=== PATIENT | male | born 1970 | race Caucasian/White ===

== ENCOUNTER 2018-05-04 18:58 | Emergency (ER) | payer OTHER, SELFPAY ==
--- NOTE | 2018-05-04 19:01 | DI.RAD.S_ITS ---
PROCEDURE: XR KNEE RT 3V INDICATIONS: knee injury TECHNIQUE: 3 views of the knee were acquired. COMPARISON: None. FINDINGS: Bones: There is a non-displaced fracture involving the medial tibial plateau and tibial eminence. No depression of the medial tibial plateau. No suspicious bony lesions. Soft tissues: Moderate knee joint effusion. No suspicious soft tissue calcifications. IMPRESSION: Non-displaced medial tibial plateau fracture. Dictated by: Marika Jordan M.D. on 05/04/2018 at 19:41 Approved by: Marika Jordan M.D. on 05/04/2018 at 19:43
[2018-05-04 19:09] VITALS: BP 149/95; PULSE 85; RESP 20; TEMP 36.8; O2SAT 100
--- NOTE | 2018-05-04 19:11 | ED.LOWEXIN ---
HPI - Extremity Injury (Lower) General Chief Complaint: Extremity Injury, Lower Stated Complaint: POSSIBLE BROKEN R LEG Time Seen by Provider: 05/04/18 19:01 Source: patient and family Mode of arrival: wheelchair Limitations: no limitations History of Present Illness HPI Narrative: Otherwise healthy 47-year-old male presents to the emergency department with his in the chief complaint of right knee injury suffered while trying to kick start an old 1940s [employer]. The kick lever gave way, when he was expecting significant resistance, this allowed all of his body wait to slam down on his knee. He has significant pain, swelling, and instability. He denies any other injury nor history of right knee injury. He denies numbness, tingling or weakness. He takes no blood thinners. He has been NPO since 1500 complaint: knee injury Onset (ago): minute(s) Related Data Allergies Allergy/AdvReac Type Severity Reaction Status Date / Time No Known Drug Allergies Allergy Verified 05/04/18 19:14 Review of Systems Review of Systems All systems reviewed & are unremarkable except as noted in HPI and below Constitutional Denies chills, Denies fever(s), Denies lethargy and Denies weakness Eyes Denies change in vision, Denies eye discharge, Denies irritation and Denies loss of vision ENT Ears, Nose, Mouth, and Throat: Denies change in voice, Denies neck pain and Denies sore throat Cardiovascular Denies chest pain, Denies irregular heart rhythm, Denies lightheadedness, Denies palpitations, Denies dyspnea, Denies dyspnea on exertion and Denies orthopnea Respiratory Denies cough, Denies dyspnea, Denies dyspnea on exertion and Denies wheezing Gastrointestinal Gastrointestinal: Denies abdominal pain, Denies change in bowel habits, Denies diarrhea, Denies nausea and Denies vomiting Genitourinary Denies hematuria, Denies flank pain, Denies urinary incontinence and Denies urinary urgency Musculoskeletal Reports joint swelling, Reports limited range of motion and Denies neck pain Integumentary/Breasts Denies pruritus, Denies erythema, Denies rash and Denies wounds Neurologic Denies confusion, Denies loss of vision and Denies weakness Psychiatric Denies anxiety, Denies confusion, Denies depression, Denies homicidal ideation and Denies suicidal ideation Endocrine Denies palpitations Hematologic/Lymphatic Denies easy bruising Allergic/Immunologic Denies wheezing PFSH Social History Smoking Status: Never smoker Exam Narrative Exam Narrative: GENERAL: This is a well-nourished, well-developed patient, in mild distress. HEAD: Atraumatic. Normocephalic. No temporal or scalp tenderness. EYES: Pupils equal round and reactive. Extraocular motions intact. No scleral icterus. No injection or drainage. ENT: Nose without bleeding, purulent drainage or septal hematoma. Throat without erythema, tonsillar hypertrophy or exudate. Uvula midline. Airway patent. NECK: Trachea midline. No JVD or lymphadenopathy. Supple, nontender, no meningeal signs. CARDIOVASCULAR: Regular rate and rhythm without murmurs, gallops, or rubs. RESPIRATORY: Clear to auscultation. Breath sounds equal bilaterally. No wheezes, rales, or rhonchi. GASTROINTESTINAL: Abdomen soft, non-tender, nondistended. No hepato-splenomegaly, or palpable masses. No guarding. EXTREMITIES: Pain along medial, lateral joint lines of R knee. Moderate effusion. Distal CMS intact. Closed and isolated injury BACK: Nontender without deformity or crepitance. No flank tenderness. NEURO: AOx3. SKIN: No rash or erythema. Initial Vital Signs Initial Vital Signs: Vital Signs Temperature 98.2 F 05/04/18 19:09 Pulse Rate 85 05/04/18 19:09 Respiratory Rate 20 05/04/18 19:09 Blood Pressure 149/95 H 05/04/18 19:09 Pulse Oximetry 100 05/04/18 19:09 Procedures Orthopedic Splinting/Casting Injury #1: Side: right Lower Extremity Immobilizer: knee immobilizer Additional Comments: Patient remains neurovascularly intact after application of splint Course Orders Ordered: ED Orders 05/04/18 19:01 XR knee RT 3V Stat 05/04/18 19:38 CT LE RT wo con Stat 05/04/18 22:26 Basic Metabolic Panel Stat Complete Blood Count AUTO DIFF Stat Hydromorphone HCl (Dilaudid) 1 mg SUBCUT Q4H PRN PRN Reason: Pain, Severe (7-10) Last Admin: 05/04/18 20:03 Dose: 1 mg Discontinued Medications Hydromorphone HCl (Dilaudid) 1 mg IV NOW ONE Stop: 05/04/18 22:09 Last Admin: 05/04/18 22:57 Dose: 0.75 mg Hydromorphone HCl (Dilaudid) 0.5 mg IV NOW ONE Stop: 05/05/18 00:55 Ondansetron HCl (Zofran) 4 mg IV NOW ONE Stop: 05/04/18 22:59 Last Admin: 05/04/18 22:58 Dose: 4 mg Reevaluation(s) Reevaluation #1: Patient was all set for discharge but there will not be a delay as 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 [facility] notified of new delay Consultations Consultation #1: Call to ortho equipment monitor phototypesetting, Dr. Vo whom has reviewed CT and xray and states the complexity of this fracture exceeds the capability of this facility. Called placed to [facility] [place]. Woods ([facility]) is happy to accept patient in transfer Vital Signs - 8 hr 05/04/18 19:09 05/04/18 20:36 05/04/18 22:49 Temperature 98.2 F Pulse Rate 85 73 48 L Respiratory Rate 20 16 15 Blood Pressure 149/95 H Blood Pressure [Right Arm] 120/60 94/55 L Pulse Oximetry 100 100 100 05/04/18 23:09 05/05/18 00:04 Temperature Pulse Rate 61 55 L Respiratory Rate 16 18 Blood Pressure Blood Pressure [Right Arm] 106/64 117/64 Pulse Oximetry 100 98 MDM - Extremity Injury (Lower) Lab Data Result diagrams: 05/04/18 22:26 05/04/18 22:26 Lab Results 05/04/18 05/04/18 Range/Units 22:26 22:26 WBC 13.0 H (4.5-11.0) X10^3/uL RBC 4.90 (4.5-5.9) X10^6/uL Hgb 15.1 (13.5-17.5) g/dL Hct 44.2 (41-53) % MCV 90.2 (80-100) fL MCH 30.8 (26-34) PG MCHC 34.1 (30-36) % RDW 13.2 (11.6-14.8) % Plt Count 315 (150-400) X10^3/uL Neut % (Auto) 76.2 H (50-75) % Lymph % (Auto) 15.1 L (25-40) % Gates % (Auto) 6.4 (3-14) % Eos % (Auto) 1.4 L (2-4) % Baso % (Auto) 0.9 (0-2) % Neut # (Auto) 9900 H (9485-3728) /uL Sodium 139 (137-145) mmol/L Potassium 4.5 (3.4-5.1) mmol/L Chloride 106 (98-107) mmol/L Carbon Dioxide 22 (22-32) mmol/L BUN 15 (9-20) mg/dL Creatinine 0.70 (0.66-1.25) mg/dL Estimated GFR > 60.0 (>60) mL/min BUN/Creatinine Ratio 21.4 (6-22) Glucose 109 H (70-100) mg/dL Calcium 9.2 (8.4-10.2) mg/dL Imaging Data Knee Xray: My impression: Minimal displaced medial tibial plateau fracture Radiologist's impression: PROCEDURE: XR KNEE RT 3V INDICATIONS: knee injury TECHNIQUE: 3 views of the knee were acquired. COMPARISON: None. FINDINGS: Bones: There is a non-displaced fracture involving the medial tibial plateau and tibial eminence. No depression of the medial tibial plateau. No suspicious bony lesions. Soft tissues: Moderate knee joint effusion. No suspicious soft tissue calcifications. IMPRESSION: Non-displaced medial tibial plateau fracture. Dictated by: Marika Jordan M.D. on 05/04/2018 at 19:41 Approved by: Marika Jordan M.D. on 05/04/2018 at 19:[address]: Radiologist's impression: PROCEDURE: CT LE RT WO CON INDICATIONS: Right knee, tibial plateau fracture TECHNIQUE: Noncontrast 1-1.5 mm axial sections acquired from the mid-patella to the proximal tibia, with coronal and sagittal reformats. COMPARISON: [facility], , XR KNEE RT 3V, 05/04/2018, 18:40. FINDINGS: Image quality: Excellent. Bones: There is comminuted medial tibial plateau fracture with involvement of the tibial spine with mild displacement (Schatzker IV). There is minimal medial tibial plateau depression. A comminuted fibular head fracture is also noted with mild displacement. Soft tissues: There is moderate effusion with a fat-fluid level consistent with hemarthrosis. IMPRESSION: 1. Comminuted medial tibial plateau fracture with involvement of tibial spine. There is mild displacement and minimal central depression. 2. Comminuted fracture of the fibular head. 3. Hemarthrosis. Dictated by: Marika Jordan M.D. on 05/04/2018 at 20:54 Approved by: Marika Jordan M.D. on 05/04/2018 at 21:02 Discharge Plan Departure Patient Disposition: [facility] Clinical Impression: Fracture of tibial plateau
--- NOTE | 2018-05-04 19:38 | DI.CT.S_ITS ---
PROCEDURE: CT LE RT WO CON INDICATIONS: Right knee, tibial plateau fracture TECHNIQUE: Noncontrast 1-1.5 mm axial sections acquired from the mid-patella to the proximal tibia, with coronal and sagittal reformats. COMPARISON: [facility], CR, XR KNEE RT 3V, 05/04/2018, 18:40. FINDINGS: Image quality: Excellent. Bones: There is comminuted medial tibial plateau fracture with involvement of the tibial spine with mild displacement (Schatzker IV). There is minimal medial tibial plateau depression. A comminuted fibular head fracture is also noted with mild displacement. Soft tissues: There is moderate effusion with a fat-fluid level consistent with hemarthrosis. IMPRESSION: 1. Comminuted medial tibial plateau fracture with involvement of tibial spine. There is mild displacement and minimal central depression. 2. Comminuted fracture of the fibular head. 3. Hemarthrosis. Dictated by: Marika Jordan M.D. on 05/04/2018 at 20:54 Approved by: Marika Jordan M.D. on 05/04/2018 at 21:02
[2018-05-04] MEDS: HYDROMORPHONE 2 MG INJ 1 MG SUBCUT (20:03)
--- NOTE | 2018-05-04 20:03 | ED_ITS ---
HPI - Extremity Injury (Lower) General Chief Complaint: Extremity Injury, Lower Stated Complaint: POSSIBLE BROKEN R LEG Time Seen by Provider: 05/04/18 19:01 Source: patient and family Mode of arrival: wheelchair Limitations: no limitations History of Present Illness HPI Narrative: Otherwise healthy 47-year-old male presents to the emergency department with his in the chief complaint of right knee injury suffered while trying to kick start an old 1940s [employer]. The kick lever gave way , when he was expecting significant resistance, this allowed all of his body wait to slam down on his knee. He has significant pain, swelling, and instability. He denies any other injury nor history of right knee injury. He denies numbness, tingling or weakness. He takes no blood thinners. He has been NPO since 1500 complaint: knee injury Onset (ago): minute(s) Related Data Allergies Allergy/AdvReac Type Severity Reaction Status Date / Time No Known Drug Allergies Allergy Verified 05/04/18 19:14 Review of Systems Review of Systems All systems reviewed & are unremarkable except as noted in HPI and below Constitutional Denies chills, Denies fever(s), Denies lethargy and Denies weakness Eyes Denies change in vision, Denies eye discharge, Denies irritation and Denies loss of vision ENT Ears, Nose, Mouth, and Throat: Denies change in voice, Denies neck pain and Denies sore throat Cardiovascular Denies chest pain, Denies irregular heart rhythm, Denies lightheadedness, Denies palpitations, Denies dyspnea, Denies dyspnea on exertion and Denies orthopnea Respiratory Denies cough, Denies dyspnea, Denies dyspnea on exertion and Denies wheezing Gastrointestinal Gastrointestinal: Denies abdominal pain, Denies change in bowel habits, Denies diarrhea, Denies nausea and Denies vomiting Genitourinary Denies hematuria, Denies flank pain, Denies urinary incontinence and Denies urinary urgency Musculoskeletal Reports joint swelling, Reports limited range of motion and Denies neck pain Integumentary/Breasts Denies pruritus, Denies erythema, Denies rash and Denies wounds Neurologic Denies confusion, Denies loss of vision and Denies weakness Psychiatric Denies anxiety, Denies confusion, Denies depression, Denies homicidal ideation and Denies suicidal ideation Endocrine Denies palpitations Hematologic/Lymphatic Denies easy bruising Allergic/Immunologic Denies wheezing PFSH Social History Smoking Status: Never smoker Exam Narrative Exam Narrative: GENERAL: This is a well-nourished, well-developed patient, in mild distress. HEAD: Atraumatic. Normocephalic. No temporal or scalp tenderness. EYES: Pupils equal round and reactive. Extraocular motions intact. No scleral icterus. No injection or drainage. ENT: Nose without bleeding, purulent drainage or septal hematoma. Throat without erythema, tonsillar hypertrophy or exudate. Uvula midline. Airway patent. NECK: Trachea midline. No JVD or lymphadenopathy. Supple, nontender, no meningeal signs. CARDIOVASCULAR: Regular rate and rhythm without murmurs, gallops, or rubs. RESPIRATORY: Clear to auscultation. Breath sounds equal bilaterally. No wheezes , rales, or rhonchi. GASTROINTESTINAL: Abdomen soft, non-tender, nondistended. No hepato-splenomegaly , or palpable masses. No guarding. EXTREMITIES: Pain along medial, lateral joint lines of R knee. Moderate effusion. Distal CMS intact. Closed and isolated injury BACK: Nontender without deformity or crepitance. No flank tenderness. NEURO: AOx3. SKIN: No rash or erythema. Initial Vital Signs Initial Vital Signs: Vital Signs Temperature 98.2 F 05/04/18 19:09 Pulse Rate 85 05/04/18 19:09 Respiratory Rate 20 05/04/18 19:09 Blood Pressure 149/95 H 05/04/18 19:09 Pulse Oximetry 100 05/04/18 19:09 Procedures Orthopedic Splinting/Casting Injury #1: Side: right Lower Extremity Immobilizer: knee immobilizer Additional Comments: Patient remains neurovascularly intact after application of splint Course Orders Ordered: ED Orders 05/04/18 19:01 XR knee RT 3V Stat 05/04/18 19:38 CT LE RT wo con Stat 05/04/18 22:26 Basic Metabolic Panel Stat Complete Blood Count AUTO DIFF Stat Hydromorphone HCl (Dilaudid) 1 mg SUBCUT Q4H PRN PRN Reason: Pain, Severe (7-10) Last Admin: 05/04/18 20:03 Dose: 1 mg Discontinued Medications Hydromorphone HCl (Dilaudid) 1 mg IV NOW ONE Stop: 05/04/18 22:09 Last Admin: 05/04/18 22:57 Dose: 0.75 mg Hydromorphone HCl (Dilaudid) 0.5 mg IV NOW ONE Stop: 05/05/18 00:55 Ondansetron HCl (Zofran) 4 mg IV NOW ONE Stop: 05/04/18 22:59 Last Admin: 05/04/18 22:58 Dose: 4 mg Reevaluation(s) Reevaluation #1: Patient was all set for discharge but there will not be a delay as 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 [facility] [place] [facility] notified of new delay Consultations Consultation #1: Call to ortho professional athlete, Dr. Vo whom has reviewed CT and xray and states the complexity of this fracture exceeds the capability of this facility. Called placed to [facility] [place] [place] Dr. Woods ([facility]) is happy to accept patient in transfer Vital Signs - 8 hr 05/04/18 19:09 05/04/18 20:36 05/04/18 22:49 Temperature 98.2 F Pulse Rate 85 73 48 L Respiratory Rate 20 16 15 Blood Pressure 149/95 H Blood Pressure [Right Arm] 120/60 94/55 L Pulse Oximetry 100 100 100 05/04/18 23:09 05/05/18 00:04 Temperature Pulse Rate 61 55 L Respiratory Rate 16 18 Blood Pressure Blood Pressure [Right Arm] 106/64 117/64 Pulse Oximetry 100 98 MDM - Extremity Injury (Lower) Lab Data Result diagrams: 05/04/18 22:26 05/04/18 22:26 Lab Results 05/04/18 05/04/18 Range/Units 22:26 22:26 WBC 13.0 H (4.5-11.0) X10^3/uL RBC 4.90 (4.5-5.9) X10^6/uL Hgb 15.1 (13.5-17.5) g/dL Hct 44.2 (41-53) % MCV 90.2 (80-100) fL MCH 30.8 (26-34) PG MCHC 34.1 (30-36) % RDW 13.2 (11.6-14.8) % Plt Count 315 (150-400) X10^3/uL Neut % (Auto) 76.2 H (50-75) % Lymph % (Auto) 15.1 L (25-40) % Cotton % (Auto) 6.4 (3-14) % Eos % (Auto) 1.4 L (2-4) % Baso % (Auto) 0.9 (0-2) % Neut # (Auto) 9900 H (0641-0924) /uL Sodium 139 (137-145) mmol/L Potassium 4.5 (3.4-5.1) mmol/L Chloride 106 (98-107) mmol/L Carbon Dioxide 22 (22-32) mmol/L BUN 15 (9-20) mg/dL Creatinine 0.70 (0.66-1.25) mg/dL Estimated GFR > 60.0 (>60) mL/min BUN/Creatinine Ratio 21.4 (6-22) Glucose 109 H (70-100) mg/dL Calcium 9.2 (8.4-10.2) mg/dL Imaging Data Knee Xray: My impression: Minimal displaced medial tibial plateau fracture Radiologist's impression: PROCEDURE: XR KNEE RT 3V INDICATIONS: knee injury TECHNIQUE: 3 views of the knee were acquired. COMPARISON: None. FINDINGS: Bones: There is a non-displaced fracture involving the medial tibial plateau and tibial eminence. No depression of the medial tibial plateau. No suspicious bony lesions. Soft tissues: Moderate knee joint effusion. No suspicious soft tissue calcifications. IMPRESSION: Non-displaced medial tibial plateau fracture. Dictated by: Marika Jordan M.D. on 05/04/2018 at 19:41 Approved by: Marika Jordan M.D. on 05/04/2018 at 19:[address]: Radiologist's impression: PROCEDURE: CT LE RT WO CON INDICATIONS: Right knee, tibial plateau fracture TECHNIQUE: Noncontrast 1-1.5 mm axial sections acquired from the mid-patella to the proximal tibia, with coronal and sagittal reformats. COMPARISON: [facility], , XR KNEE RT 3V, 05/04/2018, 18:40. FINDINGS: Image quality: Excellent. Bones: There is comminuted medial tibial plateau fracture with involvement of the tibial spine with mild displacement (Schatzker IV). There is minimal medial tibial plateau depression. A comminuted fibular head fracture is also noted with mild displacement. Soft tissues: There is moderate effusion with a fat-fluid level consistent with hemarthrosis. IMPRESSION: 1. Comminuted medial tibial plateau fracture with involvement of tibial spine. There is mild displacement and minimal central depression. 2. Comminuted fracture of the fibular head. 3. Hemarthrosis. Dictated by: Marika Jordan M.D. on 05/04/2018 at 20:54 Approved by: Marika Jordan M.D. on 05/04/2018 at 21:02 Discharge Plan Departure Patient Disposition: [facility] Clinical Impression: Fracture of tibial plateau
[2018-05-04 20:36] VITALS: BP 120/60; PULSE 73; RESP 16; O2SAT 100
[2018-05-04 22:41] LABS: Add Manual Diff / Slide Review NO; Basophils Percent Auto 0.9 % (0-2); Eosinophils Percent Auto 1.4 % (2-4); Hematocrit 44.2 % (41-53); Hemoglobin 15.1 g/dL (13.5-17.5); Lymphocytes Percent Auto 15.1 % (25-40); Mean Corpuscular HGB Conc 34.1 % (30-36); Mean Corpuscular Hemoglobin 30.8 PG (26-34); Mean Corpuscular Volume 90.2 fL (80-100); Monocytes Percent Auto 6.4 % (3-14); Neutrophils Absolute Auto 9900 /uL (3000-5900); Neutrophils Percent Auto 76.2 % (50-75); Platelet Count 315 X10^3/uL (150-400); Red Cell Distribution Width 13.2 % (11.6-14.8)
[2018-05-04 22:47] LABS: BUN Creatinine Ratio 21.4 (6-22); Blood Urea Nitrogen 15 mg/dL (9-20); Calcium 9.2 mg/dL (8.4-10.2); Carbon Dioxide 22 mmol/L (22-32); Chloride 106 mmol/L (98-107); Estimated Glomerular Filt Rate > 60.0 mL/min (>60); Glucose 109 mg/dL (70-100); HEMOLYSIS < 15 (0-50); Potassium 4.5 mmol/L (3.4-5.1); Sodium 139 mmol/L (137-145)
[2018-05-04 22:49] VITALS: BP 94/55; PULSE 48; RESP 15; O2SAT 100
[2018-05-04] MEDS: HYDROMORPHONE 1 MG INJ IV (22:57)
[2018-05-04] MEDS: ONDANSETRON 4 MG/2 ML INJ IV (22:58)
[2018-05-04 23:09] VITALS: BP 106/64; PULSE 61; RESP 16; O2SAT 100
[2018-05-05 00:04] VITALS: BP 117/64; PULSE 55; RESP 18; O2SAT 98
[2018-05-05] MEDS: HYDROMORPHONE 1 MG INJ 0.5 MG IV (01:00)
== END 2018-05-05 01:22 | disposition short-term general hospital (02) ==
PROVIDERS: Emergency Provider Emergency Medicine; PCP Specialist
DX: S82.141A Displaced bicondylar fracture of right tibia, initial encounter for closed fracture (principal); W22.8XXA Striking against or struck by other objects, initial encounter
CPT/HCPCS: 36591; 73562; 73700; 80048; 85025; 96374; 96375; 96376; 99283; 99284; J1170; J2405

== ENCOUNTER 2018-05-15 19:51 | Emergency (ER) | payer OTHER, SELFPAY ==
[2018-05-15 19:57] VITALS: BP 136/84; PULSE 95; RESP 20; TEMP 37.2; O2SAT 97; BMI 31.5
--- NOTE | 2018-05-15 20:15 | DI.US.S_ITS ---
PROCEDURE: US PERIPH VENOUS LOW EXTREM RT INDICATIONS: RLE swelling s/p R tibial plateau surgery TECHNIQUE: Real-time imaging, as well as color and pulse Doppler interrogation, were performed of the lower extremity deep veins from the inguinal ligament to the popliteal fossa. COMPARISON: None. FINDINGS: The deep veins are normally compressible, and free of intraluminal thrombus. Color and pulse Doppler demonstrate normal phasic intraluminal flow. There is normal augmentation response to distal compression maneuver. IMPRESSION: No visualized deep venous thrombosis. Dictated by: Hannah Allen M.D. on 05/15/2018 at 20:43 Approved by: Hannah Allen M.D. on 05/15/2018 at 20:46
--- NOTE | 2018-05-15 20:22 | PC.NURSE ---
Pt assisted from WC to bed, into gown, shorts and right leg brace/dressing removed. Surgical incision to right knee CDI, well approximated. US now at bedside.
--- NOTE | 2018-05-15 20:46 | ED.EXTPRO ---
HPI - Extremity Problem General Chief complaint: Extremity Problem,Nontraumatic Stated complaint: POST SURGERY SWELLING RIGHT LEG Time Seen by Provider: 05/15/18 20:28 Source: patient Mode of arrival: ambulatory Limitations: no limitations History of Present Illness HPI Narrative: Patient is 47-year-old male who presents with right leg swelling and pain. He had a tibial plateau repair about 10 days ago at [place]. He has been doing well. Today he started back at work his leg was down for most of the day tried elevated whenever possible however today when he got home he knows that his foot was quite swollen and he was not able to move his toes. He has not had fever no redness. He said overall actually been feeling much better. MD Complaint: extremity swelling Related Data Allergies Allergy/AdvReac Type Severity Reaction Status Date / Time No Known Drug Allergies Allergy Verified 05/04/18 19:14 Review of Systems Review of Systems GENERAL: Denies chills, fatigue, malaise, fever, sweats, travel HEENT: Denies sinus pain, ear pain, sore throat, difficulty swallowing, neck pain RESPIRATORY: Denies dyspnea, cough, wheezing, hemoptysis, sputum. CARDIOVASCULAR: Denies chest pain, palpitations, orthopnea, edema GASTROINTESTINAL: Denies nausea, vomiting, abdominal pain, diarrhea, constipation, melena. : Denies dysuria, frequency, incontinence, hematuria, urinary retention, flank pain. MUSCULOSKELETAL: see hpi SKIN: No rash, no erythema, no pruritus NEUROLOGIC: Denies weakness, dizziness, headache, numbness, change in speech, confusion PSYCHIATRIC: No concerning psychosocial issues. 12 point review of systems is negative except for those stated above and HPI PFSH Medical History Fracture of right tibial plateau (Acute) Social History Smoking Status: Never smoker Exam Initial Vital Signs Initial Vital Signs: Vital Signs Temperature 98.9 F 05/15/18 19:57 Pulse Rate 95 H 05/15/18 19:57 Respiratory Rate 20 05/15/18 19:57 Blood Pressure 136/84 H 05/15/18 19:57 Pulse Oximetry 97 05/15/18 19:57 GENERAL: Well-appearing, well-nourished and in no acute distress. CARDIOVASCULAR: peripheral pulses in tact, cap refill <2 sec RESPIRATORY: No respiratory distress, speaks in full sentences without difficulty EXTREMITIES: Normal range of motion, no clubbing or edema. Neurovascularly intact -right leg: Incision sites are clean and dry no erythema minimal swelling around the knee. The foot is swollen along with calf. The calf is nontender no erythema distal pedal pulse intact NEUROLOGICAL: Cranial nerves II through XII grossly intact. Normal gait and speech. SKIN: Warm, dry, no petechiae, no rashes or lesions. Course Orders Ordered: ED Orders 05/15/18 20:15 [address] [facility] venous low extrem rt Stat Vital Signs - 8 hr 05/15/18 19:57 05/15/18 21:15 Temperature 98.9 F Pulse Rate 95 H 79 Respiratory Rate 20 18 Blood Pressure 136/84 H Blood Pressure [Left Arm] 144/95 H Pulse Oximetry 97 99 MDM - Extremity (Nontraumatic) Imaging Data Venous US: Radiologist's impression: PROCEDURE: US [facility] VENOUS LOW EXTREM RT INDICATIONS: RLE swelling s/p R tibial plateau surgery TECHNIQUE: Real-time imaging, as well as color and pulse Doppler interrogation, were performed of the lower extremity deep veins from the inguinal ligament to the popliteal fossa. COMPARISON: None. FINDINGS: The deep veins are normally compressible, and free of intraluminal thrombus. Color and pulse Doppler demonstrate normal phasic intraluminal flow. There is normal augmentation response to distal compression maneuver. IMPRESSION: No visualized deep venous thrombosis. Dictated by: Hannah Allen M.D. on 05/15/2018 at 20:43 Discharge Plan Departure Patient Disposition: Home, Self-Care Clinical Impression: Leg edema, right Discharge Date/Time: 05/15/18 21:25 Interventions: ED Discharge Assessment Last Done: 05/15/18 21:48 Instructions: DI for Peripheral Edema, Unilateral Activity Restrictions/Additional Instructions: *You have been diagnosed with right leg swelling *What to do: Likely a postoperative and from returning to work. Keep elevated above heart as much an often as possible, you may also ice 20 min at a time *Continue to take medications as directed *Follow up with your primary care provider in 2-3 days, follow up with [facility] as previously scheduled for this week *Return to ER if you should have increasing pain, swelling, fever, red or any new, worsening or concerning symptoms Referrals: Lauri Garcia MD [Primary Care Provider] -
[2018-05-15 21:15] VITALS: BP 144/95; PULSE 79; RESP 18; O2SAT 99
--- NOTE | 2018-05-15 21:37 | PC.NURSE ---
Pt had recent tibia plateau surgery on right leg. Increased swelling and discomfort in the right ankle/foot. Foot is pink, warm, and dry. Cap refill less than 2 seconds. Pedal pulse is difficult to palpate, due to increased swelling.
== END 2018-05-15 21:25 | disposition home or self-care (01) ==
PROVIDERS: Emergency Provider Emergency Medicine; PCP Specialist
DX: R60.0 Localized edema (principal)
CPT/HCPCS: 93971; 99282; 99284

== ENCOUNTER 2021-08-06 10:59 | Emergency (ER) | payer OTHER, SELFPAY ==
[2021-08-06 11:00] VITALS: BP 170/108; PULSE 73; RESP 16; TEMP 36.4; O2SAT 99; BMI 33.0
--- NOTE | 2021-08-06 12:41 | ED.WOUNDLAC ---
HPI - Wound/Laceration <KELLEY Huertas - Last Filed: 08/06/21 18:17> General Chief Complaint: Wound/Laceration Stated Complaint: Cut/drained neck abscess at home. Bleeding. VSS. Time Seen by Provider: 08/06/21 12:40 History of Present Illness HPI narrative: 50-year-old male presents to the emergency department with a bleeding wound on his right chin. He states he had an ingrown hair which has been bothersome for a while, so he decided to clean it and cut it out 16 hours ago. He reports that it has not stopped bleeding yet. He reports that it was oozing blood on it long and saturated multiple gauze pads. He denies that it is a pulsatile bleed he reports that it is constantly oozing. He went to the [facility] walk-in clinic this morning where they reportedly used silver nitrate and it did not work, he reports he still bleeding through multiple layers of gauze. They called EMS to transport him and he reports he was going to drive himself but they were already there so he came in by EMS. He states his last tetanus was within the last 5 years but he does not remember exactly when. Related Data Allergies Allergy/AdvReac Type Severity Reaction Status Date / Time No Known Drug Allergies Allergy Verified 05/04/18 19:14 Review of Systems <KELLEY Huertas - Last Filed: 08/06/21 18:17> Review of Systems Narrative: General: denies fever, chills Head/Neck: denies headache, neck pain, complains of bleeding wound where he cut off his ingrown hair cyst on the right lower chin. Eyes: denies visual changes, eye pain Cardio: denies chest pain, palpitations Respiratory: denies shortness of breath, cough GI: denies abdominal pain, nausea, vomiting, or diarrhea : denies dysuria, hematuria MSK: denies joint pain, muscle weakness Skin: denies rash, itching Neuro: denies numbness, tingling Patient History <KELLEY Huertas - Last Filed: 08/06/21 18:17> Medical History Fracture of right tibial plateau Social History Smoking Status: Never smoker Smoking Status: Never smoker alcohol intake frequency: holidays/special occasions only Substance Use Type: does not use Exam <KELLEY Huertas - Last Filed: 08/06/21 18:17> Narrative Exam Narrative: Independently reviewed vitals signs and nursing notes. General: Awake, alert, nontoxic, no cardiorespiratory distress Head/Neck: Atraumatic, neck full range of motion Eyes: EOMI, conjunctiva normal Nose: nares patent, no rhinorrhea Mouth/Throat: moist mucus membranes, posterior pharynx normal, no oral lesions Cardio: Regular rate and rhythm, no peripheral edema Respiratory: respirations unlabored without wheezing, stridor, or rales. No retractions. GI: Abdomen soft, nontender MSK: Moves all extremities, neurovascularly intact Skin: Normal capillary refill, no rash, patient has a ramos, below his right mandible he has an open, venous bleed from the site he cut off the top of an ingrown hair. It is approximately 2 mm x 2 mm and constantly oozing after 2 hours of holding pressure. Neuro: Normal speech and cognition, normal gait Initial Vital Signs Initial Vital Signs: Vital Signs Temperature 97.6 F 08/06/21 11:00 Pulse Rate 73 08/06/21 11:00 Respiratory Rate 16 08/06/21 11:00 Blood Pressure 170/108 H 08/06/21 11:00 Pulse Oximetry 99 08/06/21 11:00 <Alfonso Morrissey MD - Last Filed: 08/06/21 18:30> Initial Vital Signs Initial Vital Signs: Vital Signs Temperature 97.6 F 08/06/21 11:00 Pulse Rate 73 08/06/21 11:00 Respiratory Rate 16 08/06/21 11:00 Blood Pressure 170/108 H 08/06/21 11:00 Pulse Oximetry 99 08/06/21 11:00 Procedures <KELLEY Huertas - Last Filed: 08/06/21 18:17> [facility] [place] of Procedure: Cautery Location: Right lateral chin, Time out performed: Yes Technique/Description of procedure performed: Anesthetized site with 1% lidocaine with epi, moderately achieved hemostasis, 2 silver nitrate sticks were used to cauterize the small vessel. Hemostasis achieved after this, used open wound did not create a larger wound. Quik clot was use topically, bacitracin, and Telfa dressing applied by RN. Patient tolerated procedure: Well and No complications Complications: none Additional Comments: Patient given another quick clot in case this starts bleeding at home. Course <KELLEY Huertas - Last Filed: 08/06/21 18:17> Orders Ordered: Discontinued Medications Bacitracin (Bacitracin Oint 0.9 Gm Pckt) 1 applic TOP NOW ONE Stop: 08/06/21 13:43 Last Admin: 08/06/21 14:04 Dose: 1 applic Documented by: ATAYLOR Lidocaine/Epinephrine (Lidocaine 1% W/Epi) 1 ml SUBCUT NOW ONE Stop: 08/06/21 13:20 Last Admin: 08/06/21 13:27 Dose: 1 ml Documented by: ATAYLOR Silver Nitrate/Potassium Nitrate (Silver Nitrate Stick) 1 each TOP NOW ONE Stop: 08/06/21 13:20 Last Admin: 08/06/21 13:37 Dose: 1 each Documented by: ATAYLOR Vital Signs Vital signs: Vital Signs - 8 hr 08/06/21 11:00 08/06/21 14:14 Temperature 97.6 F Pulse Rate 73 68 Respiratory Rate 16 16 Blood Pressure 170/108 H 139/81 Pulse Oximetry 99 99 <Alfonso Morrissey MD - Last Filed: 08/06/21 18:30> Orders Ordered: Discontinued Medications Bacitracin (Bacitracin Oint 0.9 Gm Pckt) 1 applic TOP NOW ONE Stop: 08/06/21 13:43 Last Admin: 08/06/21 14:04 Dose: 1 applic Documented by: ATAYLOR Lidocaine/Epinephrine (Lidocaine 1% W/Epi) 1 ml SUBCUT NOW ONE Stop: 08/06/21 13:20 Last Admin: 08/06/21 13:27 Dose: 1 ml Documented by: ATAYLOR Silver Nitrate/Potassium Nitrate (Silver Nitrate Stick) 1 each TOP NOW ONE Stop: 08/06/21 13:20 Last Admin: 08/06/21 13:37 Dose: 1 each Documented by: ATAYLOR Vital Signs Vital signs: Vital Signs - 8 hr 08/06/21 11:00 08/06/21 14:14 Temperature 97.6 F Pulse Rate 73 68 Respiratory Rate 16 16 Blood Pressure 170/108 H 139/81 Pulse Oximetry 99 99 [facility] - Wound/Laceration <Merly Newton PROGRAM PROJECT ANALYST - Last Filed: 08/06/21 18:17> [facility] Narrative Medical decision making narrative: 50-year-old male presents to the emergency department for small wound he created on his lower right chin after attempting to cut off an ingrown hair that has been bothersome for a couple of weeks. He was unsuccessful at hemostasis at home and went to [facility] where an attempt at cautery was done and also unsuccessful. He presented to the emergency department with a slow ooze of blood from the site. Manual pressure did not achieve hemostasis, neither did a quick clot dressing, lidocaine with epi was used to anesthetize the site, 2 silver nitrate sticks were used to cauterize the bleeding vessel. Hemostasis achieved. Patient is appropriate and amenable to discharge home. Vital signs are stable on repeat examination is unremarkable. Patient has been informed of results. Patient has been given strict return to ER precautions for any new or worsening symptoms. Patient understands to follow up closely with outpatient providers as instructed. Patient understands plan and agrees to discharge home. All questions and concerns answered at this time. Discharge Plan Departure Patient Disposition: Home Clinical Impression: Laceration Instructions: DI for Laceration Repair Activity Restrictions/Additional Instructions: *You have been diagnosed with a wound requiring cautery. Because this is bleeding so well and it is superficial I do not think you need antibiotics at this time. However, if you develop any signs of infection including increased redness, swelling, tracking down your neck, fever please return to the emergency department immediately for antibiotics. Try to keep this covered, wash it couple times a day without scrubbing, do not let the shower spray into either please, hopefully it heals without a problem. Please see your primary care provider in the next couple of days if he feels like this is not healing as expected. Use antibiotic ointment on it every day to help reduce risk of infection and to help reduce the size of the scar. *What to do: *Please continue to take your regular medications as directed. [ ] New medication prescriptions sent to your pharmacy: [ ] [ ] New medication written as a paper prescription [x ] No new medications given *Please follow up with your primary care provider in 2-3 days, call for an appointment. Let them know you were seen in the Emergency Department and that we ask that you be seen in follow up. We will electronically transmit a record of today's note if your PCP is in our system *If you do not have a primary care provider please contact the [facility] Resource line at [phone]. They will ask some questions about your medical history and help get you set up with a doctor in the community. *Return to Emergency Department if you should have any new, worsening or concerning symptoms, such as [fever greater than 101F, chills, worsening pain, persistent vomiting or other bothersome symptoms] <Alfonso Morrissey MD - Last Filed: 08/06/21 18:30> Cosign ED Attending Cosignature Attestation: I was immediately available in the department for consultation. This documentation has been reviewed and I agree with assessment and plan. Supervised by Alfonso Morrissey MD
[2021-08-06] MEDS: LIDOCAINE 1% W/EPI 1 ML SUBCUT (13:27)
[2021-08-06] MEDS: SILVER NITRATE STICK 1 EACH TOP (13:37)
[2021-08-06] MEDS: BACITRACIN OINT 0.9 GM PCKT 1 APPLIC TOP (14:04)
[2021-08-06 14:14] VITALS: BP 139/81; PULSE 68; RESP 16; O2SAT 99
== END 2021-08-06 14:27 | disposition home or self-care (01) ==
PROVIDERS: Emergency Provider Nurse Practitioner Critical Care Medicine
DX: S01.81XA Laceration without foreign body of other part of head, initial encounter (principal); W26.9XXA Contact with unspecified sharp object(s), initial encounter
CPT/HCPCS: 12011; 99283

== ENCOUNTER 2023-06-19 00:03 | Emergency (ER) | payer OTHER, SELFPAY ==
[2023-06-19] VITALS (10 sets, daily range): BP systolic 104–160; BP diastolic 56–87; PULSE 65–86; RESP 18; TEMP 36.1; O2SAT 93–98; BMI 35.9
--- NOTE | 2023-06-19 00:25 | DI.RAD.S_ITS ---
PROCEDURE: XR FOOT RT MIN 3V INDICATIONS: swelling, bruising dorsum foot/toes, low tib TECHNIQUE: 3 views of the foot were acquired. COMPARISON: [facility], CR, XR ANKLE RT MIN 3V, 06/19/2023, 1:41. [facility], CR, XR TIBIA FIBULA RT 2V, 06/19/2023, 1:41. FINDINGS: Bones: Comminuted, mildly displaced fractures can be seen involving the distal phalanx of the proximal phalanx of the great toe. Intra-articular involvement can be seen involving the interphalangeal joint. Mildly displaced, mildly comminuted fractures can be seen involving the 2nd and 3rd metatarsal necks. Generalized degenerative changes are seen, which are worst along the Lisfranc joint. Plantar and Achilles calcaneal spurs are seen. Soft tissues: Associated soft tissue swelling is seen distally. IMPRESSION: Comminuted fractures can be seen involving the distal and proximal phalanges of the great toe, with intra-articular involvement. Mildly comminuted, moderately displaced fractures of the 2nd and 3rd metatarsal necks. Note: No significant discrepancy from the preliminary report. Dictated by: Talha Couch M.D. on 06/19/2023 at 7:35 Approved by: Talha Couch M.D. on 06/19/2023 at 7:38
--- NOTE | 2023-06-19 00:25 | DI.RAD.S_ITS ---
PROCEDURE: XR ANKLE RT MIN 3V INDICATIONS: swelling, bruising dorsum foot/toes, low tib TECHNIQUE: 3 views of the ankle were acquired. COMPARISON: [facility], CR, XR FOOT RT MIN 3V, 06/19/2023, 1:41. [facility], CR, XR TIBIA FIBULA RT 2V, 06/19/2023, 1:41. FINDINGS: Bones: No fractures or dislocations. Ankle mortise is normally aligned. No suspicious bony lesions. The talar dome demonstrates no radha abnormality. Age-appropriate bony degenerative changes are seen. Plantar and Achilles calcaneal spurs are seen. Soft tissues: No tibiotalar joint effusion. Achilles tendon appears normal. IMPRESSION: Normal plain films. Note: No significant discrepancy from the preliminary report. Dictated by: Talha Couch M.D. on 06/19/2023 at 7:34 Approved by: Talha Couch M.D. on 06/19/2023 at 7:35
--- NOTE | 2023-06-19 00:25 | DI.RAD.S_ITS ---
PROCEDURE: XR TIBIA FUBULA RT 2V INDICATIONS: swelling, bruising dorsum foot/toes, low tib TECHNIQUE: 2 views of the tibia and fibula were acquired. COMPARISON: [facility], CR, XR KNEE RT 3V, 05/04/2018, 18:40. FINDINGS: Bones: No fractures or dislocations. No suspicious bony lesions. The previously seen fracture involving the tibial plateau has resolved. Soft tissues: No suspicious soft tissue calcifications or masses. IMPRESSION: Negative for acute fracture. Note: No significant discrepancy from the preliminary report. Dictated by: Talha Couch M.D. on 06/19/2023 at 7:38 Approved by: Talha Couch M.D. on 06/19/2023 at 7:38
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
[2023-06-19] MEDS: HYDROMORPHONE 0.5 MG INJ IV ×2 (00:37→04:04)
[2023-06-19] MEDS: HYDROMORPHONE 1 MG INJ IV (02:41)
[2023-06-19] MEDS: OXYCODONE/APAP 5/325 PREPACK 1 BOTTLE MISC (03:49)
== END 2023-06-19 04:19 | disposition home or self-care (01) ==
PROVIDERS: Emergency Provider Emergency Medicine
DX: S92.321A Displaced fracture of second metatarsal bone, right foot, initial encounter for closed fracture (principal); S92.331A Displaced fracture of third metatarsal bone, right foot, initial encounter for closed fracture; S92.421A Displaced fracture of distal phalanx of right great toe, initial encounter for closed fracture; V23.49XA Other motorcycle driver injured in collision with car, pick-up truck or van in traffic accident, initial encounter; Y92.488 Other paved roadways as the place of occurrence of the external cause
CPT/HCPCS: 36415; 73590; 73610; 73630; 96374; 96376; 99284; J1170

== ENCOUNTER 2023-06-29 13:46 | Day surgery (SDC) | payer OTHER, SELFPAY ==
[2023-06-29] VITALS (9 sets, daily range): BP systolic 122–146; BP diastolic 73–92; PULSE 69–87; RESP 12–17; TEMP 36.2–36.9; O2SAT 96–100; BMI 35.9
[2023-06-29] MEDS: LACTATED RINGERS 1,000 ML 42 ML IV (15:14)
--- NOTE | 2023-06-29 15:48 | P.OP_ITS ---
Operative Date/Time/Diagnoses Date of procedure: 06/29/23 Time of procedure: 15:48 Pre-op diagnosis: Right great toe fracture Post-op diagnosis: same Procedure & Clinicians Procedure: Right proximal phalanx great toe open reduction internal fixation with pinning Same procedure as scheduled: Yes Indications: 52 yo male sustained fracture of the right great toe with displacement. Reviewed options for recovery and decision made for attempt at further reduction of larger fracture fragments with wire placement as conservative measures failed to reduce fracture into alignment. We discussed the risks, potential complications, alternatives, expected outcomes. Consent was reviewed, no contraindications to the procedure at this time. Surgeon: Blanca Santoro Click Yes if Unassisted: Yes Anesthesia Type: General Operative Notes Closure Type: primary Specimen(s): none sent Applied: implant(s) (0.045 k-wires x3) Estimated Blood Loss (mL): 5 Blood products transfused: none Tourniquet time (min): 0 Procedure in detail: Patient was brought to the operating room and placed on the operating table in the supine position. After induction of general anesthesia the right great toe was anesthetized with the recorded injectables. The foot was then prepped and draped in the usual aseptic manner. After a check of anesthesia incision was made over the dorsal hallux proximal phalanx. The incision was deepened through subcutaneous tissues being careful to identify and retract all vital neural and vascular structures. All bleeders were cauterized and ligated as necessary. This allowed for a little irrigation of some of the hematoma that was there and also allowed for of placement of an elevator to verify fracture fragment and mobilization. After setting the foot up under mini C-arm, the multiple fracture fragments were noted with special note of the larger fragments. The great toe was gently mobilized laterally and abducted, distracted, and then moved medially into repositioning. This fell into place very nicely and verified on with 3 planes under mini C-arm. The 1st of the largest fragments were pinned using the 0.045 K-wire from the base of the proximal phalanx medially into the larger fragment of distal laterally. Excess wire was removed after gently bending the wires as they exited and they were capped. The area was irrigated with normal saline. 4-0 Vicryl used to close subcutaneously and 3-0 nylon for the skin. The great toe remained vascular throughout the entire procedure. The foot was gently wrapped and triple antibiotic ointment was placed on the tips of each of the exiting wires. The area was questioned to verify no extra pressure on to the skin from the exiting wires. He was placed in a a stockinette and into his postoperative boot and transferred the PACU with vital signs stable. Complications: none Post-operative Condition: stable Disposition: PACU Plan for aftercare: Following a period of postoperative monitoring, the patient will be discharged to home on written and oral postoperative instructions including keeping the dressing dry and intact, no weight to the surgical foot, icing and elevating the foot when seated home. DVT prevention techniques have been reviewed. For the 1st postoperative visit the dressing will be changed and close to the 4t h postoperative week we will likely get x-rays to check on status of healing fracture and determine timing for in-office wire removal.
--- NOTE | 2023-06-29 15:48 | PM.PREOP ---
Pre-operative Note Interval Note History & Physical reviewed/Exam performed by Physician: Yes Changes to H&P: No
[2023-06-29] MEDS: CEFAZOLIN 2 GM/100 ML PREMIX 100 ML IV (16:02)
[2023-06-29] MEDS: BUPIVACAINE 0.5% (PF) 30 ML VIAL 10 ML INJ (16:22)
[2023-06-29] MEDS: METOCLOPRAMIDE 10 MG/2 ML INJ IV (17:18)
[2023-06-29] MEDS: hydrOXYzine pamoate 25 MG CAPSULE PO (17:22)
[2023-06-29] MEDS: OXYCODONE/ACETAMINOPHEN 5/325 TABLET 1 TAB PO (17:22)
== END 2023-06-29 18:00 | disposition home or self-care (01) ==
PROVIDERS: PCP Physician Assistant; Referring Provider Podiatrist; Visit Provider Podiatrist
PROC: (CPT 28505; principal; 2023-06-29 15:45)
DX: S92.411A Displaced fracture of proximal phalanx of right great toe, initial encounter for closed fracture (principal)
CPT/HCPCS: 28505; J0690; J1100; J1170; J1885; J2250; J2405; J2704; J2765; J3010